=== PATIENT | male | born 2000 | race Hispanic/Latino ===

== ENCOUNTER 2021-11-17 10:34 | Emergency (ER) | payer SELFPAY ==
[~2021-11-17] VITALS: Ht 188 cm; Wt 109.8 kg
[2021-11-17] MEDS ORDERED: IBUPROFEN 600 MG TAB PO STA (12:21)
== END 2021-11-17 16:10 | disposition home or self-care (01) ==
LOC: ER 11:19
DX: R50.9 Fever, unspecified (principal); R51.9 Headache, unspecified; Z20.822 Contact with and (suspected) exposure to COVID-19
CPT/HCPCS: 99282; U0002